=== PATIENT | female | born 1945 | race Caucasian/White ===

== ENCOUNTER 2024-07-15 13:41 | Inpatient (IN) | payer BC, MEDICARE ==
--- NOTE | 2024-07-15 13:57 | ED ---
Fall HPI - General Chief Complaint: Fall Stated Complaint: fall Time Seen by Provider: 07/15/24 13:50 Source: patient, EMS, RN notes reviewed Mode of arrival: EMS Limitations: no limitations - History of Present Illness Initial Comments: This is a 78-year-old female who presents to the emergency department for a fall. Patient states that she was getting dressed today around 11 AM and in the process she fell and landed on her back. However, she is largely having pain to her right hip and is unable to move her leg or ambulate as a result of the pain. Denies hitting her head or any loss of consciousness. Not taking any blood thinners. Denies sustaining any other injuries. MD Complaint: fall - Related Data Allergies Allergy/AdvReac Type Severity Reaction Status Date / Time No Known Allergies Allergy Verified 07/15/24 13:47 Review of Systems ROS Statement: Those systems with pertinent positive or pertinent negative responses have been documented in the HPI. ROS Other: All systems not noted in ROS Statement are negative. Past Medical History Past Medical History: Hypertension Past Surgical History: Hysterectomy Smoking Status: Never smoker Past Alcohol Use History: None Reported Past Drug Use History: None Reported General Exam Limitations: no limitations General appearance: alert, in no apparent distress Head exam: Present: atraumatic, normocephalic, normal inspection Respiratory exam: Present: normal lung sounds bilaterally. Absent: respiratory distress, wheezes, rales, rhonchi, stridor Cardiovascular Exam: Present: regular rate, normal rhythm, normal heart sounds. Absent: systolic murmur, diastolic murmur, rubs, gallop, clicks Extremities exam: Present: other (Tenderness to palpation over the right hip. Very limited range of motion secondary to pain. No shortening or rotation of the right lower extremity. 2+ DP and PT pulses) Neurological exam: Present: alert, oriented X3, CN II-XII intact Psychiatric exam: Present: normal affect, normal mood Skin exam: Present: warm, dry, intact, normal color. Absent: rash Course Vital Signs 07/15/24 13:43 Temperature 97.7 F Pulse Rate 65 Respiratory 20 Rate Blood Pressure 161/83 O2 Sat by Pulse 98 Oximetry Medical Decision Making - Medical Decision Making This is a 78-year-old female who presents to the emergency department for right hip pain after a fall. Was pt. sent in by a medical professional or institution? @ -No Did you speak to anyone other than the patient for history? @ -No Did you review nursing and triage notes? @ -Yes, and I agree, it is accurate with regards to the patient's symptoms. Were old charts reviewed? @ -No Differential Diagnosis? @ -Differential Musculoskeletal Muscular strain, contusion, ligament sprain, fracture, arthritis, septic arthritis, bursitis, cellulitis, muscle spasm, nerve compression, DVT, arterial occlusion, herpes zoster, electrolyte abnormality, tumor.... This is not meant to be in all inclusive list EKG interpreted by me (3pts min.)? @ -Not obtained X-rays interpreted by me (1pt min.)? @ -X-ray of the right hip and AP pelvis obtained. My interpretation identifies no acute fractures. CT interpreted by me (1pt min.)? @ -CT scan of the pelvis and right femur obtained. My interpretation identifies no evidence of a femoral neck fracture. U/S interpreted by me (1pt. min.)? @ -Not obtained What testing was considered but not performed? (CT, X-rays, U/S, labs)? Why? @ -None What meds were considered but not given? Why? @ -None Did you discuss the management of the patient with other professionals? @ -Yes, Dr. Duran, who accepts the patient for admission. Did you reconcile home meds? @ -No Was smoking cessation discussed for >3mins.? @ -No Was critical care preformed (if so, how long)? @ -No Were there social determinants of health that impacted care today? How? (Homelessness, low income, unemployed, alcoholism, drug addiction, transportation, low edu. Level, literacy, decrease access to med. care, fci, rehab)? @ -No Was there de-escalation of care discussed even if they declined? (Discuss DNR or withdrawal of care, Hospice)? @ -No What co-morbidities impacted this encounter? (DM, HTN, Smoking, COPD, CAD, Cancer, CVA, Hep., AIDS, mental health diagnosis, sleep apnea, morbid obesity)? @ -None Was patient admitted / discharged? @ -Admitted. We started with an x-ray of the right hip and AP pelvis. No fractures were identified. However, given her pain we obtained a CT scan of the pelvis and right femur for better evaluation. She was found to have fractures of the superior and inferior pubic rami on the right. Discussed that these are not typically surgical fractures and management is conservative. She was given pain medication and we tried to get the patient up to ambulate. However, she was able to stand but could not take any steps with her walker. She does also live alone and is a big fall risk. Patient subsequently admitted to medicine for pain management with PT/OT and possible rehab placement depending on clinical course. Consult placed for orthopedics. Case discussed with ED attending Dr. Yan. Undiagnosed new problem with uncertain prognosis? @ -None Drug Therapy requiring intensive monitoring for toxicity (Heparin, Nitro, Insulin, Cardizem)? @ -None Were any procedures done? @ -None Diagnosis/symptom? @ -Fall, inferior and superior pubic rami fractures Acute, or Chronic, or Acute on Chronic? @ -Acute Uncomplicated (without systemic symptoms) or Complicated (systemic symptoms)? @ -Uncomplicated Side effects of treatment? @ -None Exacerbation, Progression, or Severe Exacerbation] @ -Not applicable Poses a threat to life or bodily function? @ -Yes, patient unable to ambulate - Radiology Data Radiology results: report reviewed, image reviewed Disposition Clinical Impression: Fall, Inferior pubic ramus fracture, Fracture of superior pubic ramus Disposition: ADMITTED IP TO THIS HOSP
--- NOTE | 2024-07-15 14:13 | XR ---
EXAMINATION TYPE: XR Hip RT and AP Pelvis DATE OF EXAM: 07/15/2024 CLINICAL INDICATION: Female, 78 years old with history of Fall, hip pain, hip pain. TECHNIQUE: A single AP view of the pelvis is obtained. Two views of the right hip are obtained. COMPARISON: None. FINDINGS: Osseous structures are demineralized. There is no acute fracture/dislocation evident in t he pelvis or right hip. There is narrowing of the bilateral sacroiliac joints more prominent on the l eft. Pubic symphysis is intact. Mild to moderate narrowing and spurring in both hip joints. Overlying soft tissue is unremarkable. IMPRESSION: There is no acute fracture or dislocation in the pelvis or right hip. [facility], , 07/15/2024 2:10 PM
[2024-07-15] MEDS: KETOROLAC 15 MG/ML 1 ML VIAL IVP STA (15:06)
[2024-07-15] MEDS: MORPHINE SULFATE 4 MG/ML SYRINGE IVP STA (15:06)
[2024-07-15] MEDS: KETOROLAC 15 MG/ML 1 ML VIAL IM STA (15:10)
[2024-07-15] MEDS: MORPHINE SULFATE 4 MG/ML SYRINGE IM STA (15:10)
--- NOTE | 2024-07-15 15:34 | CT ---
EXAMINATION TYPE: CT pelvis wo con DATE OF EXAM: 07/15/2024 COMPARISON: None CLINICAL INDICATION: Female, 78 years old with history of Fall, right hip pain; PHH, Right leg pain p ost fall CT DLP: mGycm Automated exposure control for dose reduction was used. FINDINGS: There is a nondisplaced fracture of the proximal right superior pubic ramus and minimally displaced f racture of the right inferior pubic ramus. There is no diastasis of the pubic symphysis or SI joints. There is marked osteoarthritic changes of facets at the L5-S1 level. IMPRESSION: Fractures of the superior and inferior pubic rami on the right as described above. [facility], , 07/15/2024 3:31 PM
--- NOTE | 2024-07-15 16:09 | CT ---
EXAMINATION TYPE: CT femur RT wo con DATE OF EXAM: 07/15/2024 COMPARISON: None CLINICAL INDICATION: Female, 78 years old with history of Fall, right hip pain; PHH, Right leg pain p ost fall CT DLP: mGycm Automated exposure control for dose reduction was used. FINDINGS: There is no fracture or dislocation of the right hip or femur. There is minimal osteoarthritic change s right hip as evidenced by mild hypertrophic spurring of the acetabulum and minimal joint space narr owing. There is a total right knee prosthesis which appears to be in satisfactory position. The soft tissues are unremarkable. IMPRESSION: No evidence of acute trauma to the right hip or femur. [facility], , 07/15/2024 4:07 PM
[2024-07-15] MEDS ORDERED: NALOXONE 0.4 MG/ML 1 ML VIAL IV PRN (16:41)
[2024-07-15] MEDS ORDERED: ACETAMINOPHEN TAB 325 MG TAB PO PRN (16:41)
[2024-07-15 17:55] LABS: Basophils # (A) 0.1 k/uL (0-0.2); Basophils % (A) 1 %; Eosinophils # (A) 0.1 k/uL (0-0.7); Eosinophils % (A) 1 %; HCT 42.3 % (34.0-46.0); HGB 13.8 gm/dL (11.4-16.0); Lymphocytes # (A) 1.7 k/uL (1.0-4.8); Lymphocytes % (A) 11 %; MCH 28.7 pg (25.0-35.0); MCHC 32.6 g/dL (31.0-37.0); MCV 87.9 fL (80.0-100.0); Mean Platelet Volume 8.3; Monocytes # (A) 0.8 k/uL (0-1.0); Monocytes % (A) 5 %; Neutrophils # (A) 12.8 k/uL (1.3-7.7); Neutrophils % (A) 82 %; Platelet Count 319 k/uL (150-450); RBC 4.82 m/uL (3.80-5.40); WBC 15.6 k/uL (3.8-10.6)
[2024-07-15 18:05] LABS: ALT 28 U/L (4-34); AST 47 U/L (14-36); African American GFR (CKD) 74 (>60 ml/min/1.73 sqM); Albumin 4.8 g/dL (3.5-5.0); Alkaline Phosphatase 68 U/L (38-126); Anion Gap 13 mmol/L; Blood Urea Nitrogen 15 mg/dL (7-17); Calcium 9.8 mg/dL (8.4-10.2); Carbon Dioxide 21 mmol/L (22-30); Chloride 100 mmol/L (98-107); Glucose 100 mg/dL (74-99); Non-African American GFR(CKD) 64 (>60 ml/min/1.73 sqM); Potassium 4.8 mmol/L (3.5-5.1); Sodium 134 mmol/L (137-145); Total Bilirubin 1.2 mg/dL (0.2-1.3)
[2024-07-15] MEDS: PANTOPRAZOLE 40 MG TABLET PO SCH (20:16)
[2024-07-15] MEDS: PROPRANOLOL LA 60 MG CAP.SA.24H PO SCH (20:16)
[2024-07-15] MEDS: ANASTROZOLE 1 MG TAB PO SCH (20:16)
[2024-07-15] MEDS: LEVOTHYROXINE 125 MCG TAB PO SCH (20:16)
[2024-07-15] MEDS: ATORVASTATIN 10 MG TAB PO SCH (20:16)
[2024-07-16] MEDS: PANTOPRAZOLE 40 MG/10 ML VIAL IV SCH (08:27)
--- NOTE | 2024-07-16 08:31 | P.HPIM ---
History of Present Illness H&P Date: 07/16/24 This is a 78-year-old female who presented to the emergency department for complaints of a fall. Patient reports she had been getting dressed when she fell and landed on her back. Patient was having a lot of pain to her right hip and was unable to ambulate as a result of the pain. Patient denies any loss of consciousness or hitting her head during the fall. Patient does live alone at home, however family is close by. CT of the pelvis shows fracture of the superior and inferior pubic rami on the right. Patient attempted to ambulate in the emergency room however was unable to stand. Orthopedics have been consulted. Patient reports pain is well-controlled. Further medical history as noted below. Review of Systems Constitutional: Denies chills, Denies fever Cardiovascular: Denies chest pain, Denies dyspnea on exertion Respiratory: Denies cough, Denies dyspnea Gastrointestinal: Denies nausea, Denies vomiting Musculoskeletal: Reports limitation of motion, Denies leg numbness/tingling Musculoskeletal: right: hip pain Neurological: Denies headaches, Denies weakness Past Medical History Past Medical History: Cancer, Hypertension Additional Past Medical History / Comment(s): Breast CA History of Any Multi-Drug Resistant Organisms: None Reported Past Surgical History: Hysterectomy Additional Past Surgical History / Comment(s): Left mastectomy with lymph node removal, Right total knee Past Psychological History: Anxiety Smoking Status: Never smoker Past Alcohol Use History: None Reported Past Drug Use History: None Reported - Past Family History Father Family Medical History: Diabetes Mellitus Mother Family Medical History: No Reported History Medications and Allergies Home Medications Medication Instructions Recorded Confirmed Type Anastrozole [Arimidex] 1 mg PO HS 07/15/24 07/15/24 History Levothyroxine Sodium [Synthroid] 125 mcg PO HS 07/15/24 07/15/24 History Omeprazole 20 mg PO HS 07/15/24 07/15/24 History Propranolol LA [Inderal LA] 60 mg PO HS 07/15/24 07/15/24 History Simvastatin [Zocor] 20 mg PO HS 07/15/24 07/15/24 History Allergies Allergy/AdvReac Type Severity Reaction Status Date / Time No Known Allergies Allergy Verified 07/15/24 18:02 Physical Exam Vitals: Vital Signs Temp Pulse Pulse Resp BP BP Pulse Ox 07/16/24 07:37 14 03/27/25 07:17 98.0 F 65 18 117/77 97 07/16/24 02:00 98.5 F 66 12 116/71 96 07/15/24 19:58 98.8 F 70 14 131/84 90 L 07/15/24 19:20 70 14 07/15/24 18:23 98.7 F 67 18 160/78 99 07/15/24 18:01 97.8 F 70 18 126/72 98 07/15/24 13:43 97.7 F 65 20 161/83 98 Intake and Output 07/15/24 07/16/24 07/16/24 22:59 06:59 14:59 Intake Total 240 Balance 240 Intake: Oral 240 Other: Voiding Method Bedpan Bedpan # Voids 2 Weight 67.132 kg - Constitutional General appearance: cooperative, no acute distress - EENT Eyes: PERRLA - Neck Neck: no lymphadenopathy, normal ROM, no rigidity - Respiratory Respiratory: bilateral: CTA - Cardiovascular Rhythm: regular Heart sounds: normal: S1, S2 - Gastrointestinal General gastrointestinal: soft, no tenderness - Integumentary Integumentary: normal, normal turgor - Musculoskeletal Musculoskeletal: generalized weakness, strength equal bilaterally - Psychiatric Psychiatric: A&O x's 3 Results CBC & Chem 7: 07/15/24 17:34 07/15/24 17:34 Labs: Abnormal Lab Results - Last 24 Hours (Table) 07/15/24 07/15/24 Range/Units 17:34 17:34 WBC 15.6 H (3.8-10.6) k/uL Neutrophils # 12.8 H (1.3-7.7) k/uL Sodium 134 L (137-145) mmol/L Carbon Dioxide 21 L (22-30) mmol/L Glucose 100 H (74-99) mg/dL AST 47 H (14-36) U/L Thrombosis Risk Factor Assmnt - Choose All That Apply Any of the Below Risk Factors Present?: Yes Other Risk Factors: Yes Each Risk Factor Represents 3 Points: Age 75 years or older Other congenital or acquired thrombophilia - If yes, enter type in comment: Yes Each Risk Factor Represents 5 Points: Hip, pelvis, or leg fracture (< 1 month) Thrombosis Risk Factor Assessment Total Risk Factor Score: 8 Thrombosis Risk Factor Assessment Level: High Risk Assessment and Plan (1) Hypertension Current Visit: Yes Status: Acute Code(s): I10 - ESSENTIAL (PRIMARY) HYPERTENSION SNOMED Code(s): 42872861 (2) Fall Current Visit: Yes Status: Acute Code(s): W19.XXXA - UNSPECIFIED FALL, INITIAL ENCOUNTER SNOMED Code(s): 1260904 (3) Fracture of superior pubic ramus Current Visit: Yes Status: Acute Code(s): S32.519A - FRACTURE OF SUPERIOR RIM OF UNSP PUBIS, INIT FOR CLOS FX SNOMED Code(s): 828543874 (4) Inferior pubic ramus fracture Current Visit: Yes Status: Acute Code(s): S32.599A - OTH FRACTURE OF UNSP PUBIS, INIT ENCNTR FOR CLOSED FRACTURE SNOMED Code(s): 786569085 (5) Hypothyroid Current Visit: Yes Status: Acute Code(s): E03.9 - HYPOTHYROIDISM, UNSPECIFIED SNOMED Code(s): 03620583 Plan: Continue home medications. Recheck CBC and CMP in the morning. Consult to orthopedics, appreciate their recommendations. Consult to PT and OT for evaluation when cleared by Ortho. Patient may need placement due to living alone. Patient seen and evaluated by nurse practitioner, physician in agreement with plan.
--- NOTE | 2024-07-16 10:21 | P.CNOR ---
History of Present Illness - [facility] Consult date: 07/16/24 Consult reason: fracture (Right pubic rami) History of present illness: This is a 78-year-old female who is admitted to [facility] on 07/15/2024 after falling in her home and sustaining injury to her right hip. She states that she was trying to put her socks on and lost her balance. She complains of right hip pain. She denies head or neck injury. She denies injury to her upper extremities. Past Medical History Past Medical History: Cancer, Hypertension Additional Past Medical History / Comment(s): Breast CA History of Any Multi-Drug Resistant Organisms: None Reported Past Surgical History: Hysterectomy Additional Past Surgical History / Comment(s): Left mastectomy with lymph node removal, Right total knee Past Psychological History: Anxiety Smoking Status: Never smoker Past Alcohol Use History: None Reported Past Drug Use History: None Reported - Past Family History Father Family Medical History: Diabetes Mellitus Mother Family Medical History: No Reported History Medications and Allergies Home Medications Medication Instructions Recorded Confirmed Type Anastrozole [Arimidex] 1 mg PO HS 07/15/24 07/15/24 History Levothyroxine Sodium [Synthroid] 125 mcg PO HS 07/15/24 07/15/24 History Omeprazole 20 mg PO HS 07/15/24 07/15/24 History Propranolol LA [Inderal LA] 60 mg PO HS 07/15/24 07/15/24 History Simvastatin [Zocor] 20 mg PO HS 07/15/24 07/15/24 History Allergies Allergy/AdvReac Type Severity Reaction Status Date / Time No Known Allergies Allergy Verified 07/15/24 18:02 Physical Examination This is a pleasant 78-year-old female in no acute distress. She is alert and oriented x 3. Exam of the head neck revealed no obvious deformity. She has fairly good cervical spine motion without difficulty or pain. Nontender with palpation over the cervical spinous processes and paraspinal musculature. Exam of the upper extremities reveals good range of motion of the shoulders, elbows, wrist and fingers. Neurovascular status to the upper extremities is intact. Exam of the lower extremities reveals no obvious deformity. Total knee scar noted on the right knee. She is unable to lift her right leg off the bed indepe ndently. She is able to lift her left leg off the bed independently. She has full foot and ankle motion bilaterally. Logroll to the right hip produces pain. Neurovascular status to the lower extremities is intact. Results X-ray and CT of the pelvis and right hip reveals nondisplaced superior and inferior pubic rami fractures on the right. The superior rami fracture extends adjacent to the acetabulum. She has mild to moderate hip arthritis on the right. No other fractures noted. - Labs Labs: Abnormal Lab Results - Last 24 Hours (Table) 07/15/24 07/15/24 Range/Units 17:34 17:34 WBC 15.6 H (3.8-10.6) k/uL Neutrophils # 12.8 H (1.3-7.7) k/uL Sodium 134 L (137-145) mmol/L Carbon Dioxide 21 L (22-30) mmol/L Glucose 100 H (74-99) mg/dL AST 47 H (14-36) U/L H & H 07/15/24 Range/Units 17:34 Hgb 13.8 (11.4-16.0) gm/dL Hct 42.3 (34.0-46.0) % Result Diagrams: 07/15/24 17:34 07/15/24 17:34 Assessment and Plan (1) Fall Current Visit: Yes Status: Acute Code(s): W19.XXXA - UNSPECIFIED FALL, IN ITIAL ENCOUNTER SNOMED Code(s): 5907924 (2) Fracture of superior pubic ramus Current Visit: Yes Status: Acute Code(s): S32.519A - FRACTURE OF SUPERIOR RIM OF UNSP PUBIS, INIT FOR CLOS FX SNOMED Code(s): 991837160 (3) Inferior pubic ramus fracture Current Visit: Yes Status: Acute Code(s): S32.599A - OTH FRACTURE OF UNSP PUBIS, INIT ENCNTR FOR CLOSED FRACTURE SNOMED Code(s): 472844826 Plan: The clinical and radiographic findings are discussed with the patient. She will be toe-touch weightbearing to the right lower extremity with walker. I have consulted physical therapy and Occupational Therapy. She may possibly require inpatient rehab at discharge. However, the patient would like to be able to go home. She states she does have help at home and that her daughter lives close by. She is to follow-up in our office in 2 weeks for esha-ray and evaluation.
[2024-07-16] MEDS: KETOROLAC 15 MG/ML 1 ML VIAL IVP PRN (11:15)
[2024-07-16] MEDS: MORPHINE SULFATE 4 MG/ML SYRINGE IV PRN (11:50)
[2024-07-16] MEDS: ONDANSETRON 4 MG/2 ML VIAL IVP PRN (11:53)
[2024-07-16] MEDS: HYDROcodone/APAP 5-325MG 1 EACH TAB PO PRN (15:49)
[2024-07-17 08:09] VITALS: BP 112/75; PULSE 62; RESP 19; TEMP 98.3
[2024-07-17 08:18] LABS: HCT 42.9 % (37.2-46.3); HGB 13.3 g/dL (12.0-15.0); MCH 28.6 pg (27.0-32.0); MCV 92.3 FL (80.0-97.0); Mean Platelet Volume 11.1 FL (9.5-12.2); NRBC Per 100 WBC 0 X 10*3/uL (0.00-0.01); Platelet Count 293 X 10*3/uL (140-440); RBC 4.65 X 10*6/uL (4.10-5.20); RDW 15.1 % (11.5-14.5); WBC 10.26 X 10*3/uL (4.50-10.00)
[2024-07-17 08:44] LABS: ALT 26 U/L (8-44); AST 46 U/L (13-35); Albumin 4.6 g/dL (3.8-4.9); Albumin/Globulin Ratio 1.59 Ratio (1.60-3.17); Alkaline Phosphatase 62 U/L (41-126); BUN/Creat Ratio 16.56 Ratio (12.00-20.00); Blood Urea Nitrogen 29.8 mg/dL (9.0-27.0); Calcium 9.6 mg/dL (8.7-10.3); Chloride 102 mmol/L (96-109); Globulin 2.9 g/dL (1.6-3.3); Glucose 112 mg/dL (70-110); Potassium 4.5 mmol/L (3.5-5.5); Sodium 138 mmol/L (135-145); Total Bilirubin 0.5 mg/dL (0.3-1.2); Total Protein 7.5 g/dL (6.2-8.2)
--- NOTE | 2024-07-17 10:24 | P.DS ---
Providers Date of admission: 07/15/24 16:58 Expected date of discharge: 07/17/24 Attending physician: Jose Duran Consults: 07/15/24 16:41 Consult Physician Urgent Consulting Provider: Omega Munoz Consult Reason/Comments: Superior and inferior pubic rami fractures Do you want consulting provider notified?: Yes Primary care physician: Jose Duran Hospital Course: the patient is a 78-year-old white female who fell resulting in inferior to her pubic rami fractures. She is going to try to go home with her daughter and lived there for her rehabilitation. She has good support there and we will set up home PTOT at that point. If she does not do well we will consider inpatient rehab. Plan - Discharge Summary New Discharge Prescriptions: New HYDROcodone/APAP 5-325MG [Paxton 5-325] 1 each PO Q4HR PRN #180 tab PRN Reason: Moderate Pain (Scale 4 To 6) Continue Propranolol LA [Inderal LA] 60 mg PO HS Anastrozole [Arimidex] 1 mg PO HS Simvastatin [Zocor] 20 mg PO HS Omeprazole 20 mg PO HS Levothyroxine Sodium [Synthroid] 125 mcg PO HS Discharge Medication List Anastrozole [Arimidex] 1 mg PO HS 07/15/24 [History] Levothyroxine Sodium [Synthroid] 125 mcg PO HS 07/15/24 [History] Omeprazole 20 mg PO HS 07/15/24 [History] Propranolol LA [Inderal LA] 60 mg PO HS 07/15/24 [History] Simvastatin [Zocor] 20 mg PO HS 07/15/24 [History] HYDROcodone/APAP 5-325MG [Paxton 5-325] 1 each PO Q4HR PRN #180 tab 07/17/24 [Rx] Follow up Appointment(s)/Referral(s): Residential Home,Health [NON-STAFF] - 1 Week Omega Munoz MD [STAFF PHYSICIAN] - 2 Weeks None,Stated [REFERRING] - 1 Week Jose Duran MD [Primary Care Provider] - 1 Week Activity/Diet/Wound Care/Special Instructions: Patient will stay with her daughter Lori at [address] [place] [address] Dr. Conrado Moreno [id number] Discharge Disposition: HOME WITH HOME HEALTH SERVICES
== END 2024-07-17 12:45 | disposition home health service (06) | DRG 536 ==
LOC: EC 13:41 → 5NMEDONC 16:58
PROVIDERS: ADMIT Family Medicine; ATTEND Family Medicine
DX: S32.591A Other specified fracture of right pubis, initial encounter for closed fracture (principal); E03.9 Hypothyroidism, unspecified; I10 Essential (primary) hypertension; Z79.890 Hormone replacement therapy; W19.XXXA Unspecified fall, initial encounter; F41.9 Anxiety disorder, unspecified; Z85.3 Personal history of malignant neoplasm of breast; Z90.12 Acquired absence of left breast and nipple; Z90.710 Acquired absence of both cervix and uterus; Y92.099 Unspecified place in other non-institutional residence as the place of occurrence of the external cause
CPT/HCPCS: 72192; 73502; 80053; 85025; 85027; 96372; 96374; 96375; 96376; 99285

== ENCOUNTER 2024-11-11 20:29 | Observation (INO) | payer MEDICARE ==
--- NOTE | 2024-11-11 20:47 | ED ---
Altered Mental Status HPI - General Chief Complaint: Altered Mental Status Stated Complaint: Confused Time Seen by Provider: 11/11/24 20:39 Source: patient, RN notes reviewed, old records reviewed, Caregiver Mode of arrival: ambulatory Limitations: no limitations - History of Present Illness Initial Comments: This is a 78-year-old female presenting by family, family states patient was having slurred speech inappropriate activity and confusion at home today. This did appear to be sudden onset that she was acting appropriately yesterday. Patient is brought in by family without complaints she currently has no complaints and is not happy to be in the hospital but family concern for stroke MD Complaint: altered mental status, confusion -: unknown Severity: moderate Consistency of Symptoms: waxing and waning Associated Symptoms: denies other symptoms - Related Data Home Medications Medication Instructions Recorded Confirmed Anastrozole [Arimidex] 1 mg PO HS 07/15/24 11/12/24 Omeprazole 20 mg PO HS 07/15/24 11/12/24 Propranolol LA [Inderal LA] 60 mg PO HS 07/15/24 11/12/24 Simvastatin [Zocor] 20 mg PO HS 07/15/24 11/12/24 HYDROcodone/APAP 7.5-325MG [[place] 1 tab PO Q4H PRN 11/12/24 11/12/24 7.5-325] LORazepam [Ativan] 1 mg PO TID PRN 11/12/24 11/12/24 Previous Rx's Medication Instructions Recorded Folic Acid 1 mg PO DAILY #30 tab 11/13/24 Levothyroxine Sodium [Synthroid] 150 mcg PO HS #30 tab 11/13/24 Allergies Allergy/AdvReac Type Severity Reaction Status Date / Time morphine Allergy Unknown Verified 11/12/24 10:24 Penicillins Allergy Unknown Verified 11/12/24 10:24 Childhood sulfamethoxazole Allergy Unknown Verified 11/12/24 10:24 [From Bactrim] trimethoprim [From Bactrim] Allergy Unknown Verified 11/12/24 10:24 Review of Systems ROS Statement: Those systems with pertinent positive or pertinent negative responses have been documented in the HPI. ROS Other: All systems not noted in ROS Statement are negative. Past Medical History Past Medical History: Cancer, Hypertension Additional Past Medical History / Comment(s): Breast CA History of Any Multi-Drug Resistant Organisms: None Reported Past Surgical History: Hysterectomy Additional Past Surgical History / Comment(s): Left mastectomy with lymph node removal, Right total knee Past Psychological History: Anxiety Smoking Status: Never smoker Past Alcohol Use History: None Reported Past Drug Use History: None Reported - Past Family History Father Family Medical History: Diabetes Mellitus Mother Family Medical History: No Reported History General Exam - General Exam Comments Initial Comments: NIH of 0 with no focal neurological deficit noted here Limitations: altered mental status General appearance: alert, in no apparent distress Head exam: Present: atraumatic, normocephalic, normal inspection Eye exam: Present: normal appearance, PERRL, EOMI. Absent: scleral icterus, conjunctival injection, periorbital swelling ENT exam: Present: normal exam, mucous membranes moist Neck exam: Present: normal inspection. Absent: tenderness, meningismus, lymphadenopathy Respiratory exam: Present: normal lung sounds bilaterally. Absent: respiratory distress, wheezes, rales, rhonchi, stridor Cardiovascular Exam: Present: regular rate, normal rhythm, normal heart sounds. Absent: systolic murmur, diastolic murmur, rubs, gallop, clicks GI/Abdominal exam: Present: soft, normal bowel sounds. Absent: distended, te nderness, guarding, rebound, rigid Extremities exam: Present: normal inspection, full ROM, normal capillary refill. Absent: tenderness, pedal edema, joint swelling, calf tenderness Back exam: Present: normal inspection Neurological exam: Present: alert, oriented X3, CN II-XII intact Psychiatric exam: Present: normal affect, normal mood Skin exam: Present: warm, dry, intact, normal color. Absent: rash Course Vital Signs 11/11/24 11/11/24 11/12/24 20:31 21:11 00:01 Temperature 97.9 F 98.6 F Pulse Rate 71 68 65 Respiratory 18 18 17 Rate Blood Pressure 173/84 141/86 148/76 O2 Sat by Pulse 100 99 99 Oximetry - Reevaluation(s) Reevaluation #1: 11/11/24 22:22 Medical records reviewed Reevaluation #2: 11/11/24 22:22 Patient symptoms do appear to wax and wane here in the ER Reevaluation #3: 11/11/24 22:22 Patient informed of results questions answered Reevaluation #4: Was pt. sent in by a medical professional or institution (Dr., PA, STAFF SCIENTIST, urgent care, hospital, or prison...) When possible be specific @ -no Did you speak to anyone other than the patient for history (EMS, parent, family, police, friend...)? What history was obtained from this source @ -no Did you review nursing and triage notes (agree or disagree)? Why? @ -agree Are old charts reviewed (outside hosp., previous admission, EMS record, old EKG, old radiological studies, urgent care reports/EKG's, prison records)? Report findings @ -yes Differential Diagnosis (chest pain, altered mental status, abdominal pain women, abdominal pain men, vaginal bleeding, weakness, fever, dyspnea, syncope, headache, dizziness, GI bleed, back pain, seizure, CVA, palpatations, mental health, musculoskeletal)? @ -prior EKG interpreted by me (3pts min.). @ -yes X-rays interpreted by me (1pt min.). @ -no CT interpreted by me (1pt min.). @ -yes negative for acute disease U/S interpreted by me (1pt. min.). @ -no What testing was considered but not performed or refused? (CT, X-rays, U/S, labs)? Why? @ -none What meds were considered but not given or refused? Why? @ -none Did you discuss the management of the patient with other professionals (professionals i.e. , PA, STAFF SCIENTIST, lab, RT, psych nurse, social organization professor, nurse clinical, teacher, police officer, caseworker protective services)? Give summary @ -no Was smoking cessation discussed for >3mins.? @ -no Was critical care preformed (if so, how long)? @ -no Were there social determinants of health that impacted care today? How? (Homelessness, low income, unemployed, alcoholism, drug addiction, transportation, low edu. Level, literacy, decrease access to med. care, [facility], rehab)? @ -none Was there de-escalation of care discussed even if they declined (Discuss DNR or withdrawal of care, Hospice)? DNR status @ -no What co-morbidities impacted this encounter? (DM, HTN, Smoking, COPD, CAD, Cancer, CVA, ARF, Chemo, Hep., AIDS, mental health diagnosis, sleep apnea, morbid obesity)? @ -none Was patient admitted / discharged? Hospital course, mention meds given and route, prescriptions, significant lab abnormalities, going to OR and other pertinent info. @ - 78 female to the ER for evaluation of altered mental status, CT scanning is normal lab testing is negative here in the ER patient will admit for continued altered mental status Admitted Undiagnosed new problem with uncertain prognosis? @ -no Drug Therapy requiring intensive monitoring for toxicity (Heparin, Nitro, Insulin, Cardizem)? @ -no Were any procedures done? @ -no Diagnosis/symptom? @ -Altered mental status Acute, or Chronic, or Acute on Chronic? @ -Acute Uncomplicated (without systemic symptoms) or Complicated (systemic symptoms)? @ -Complicated Side effects of treatment? @ -no Exacerbation, Progression, or Severe Exacerbation? @ -exacerbation Poses a threat to life or bodily function? How? (Chest pain, USA, DC, pneumonia, PE, COPD, DKA, ARF, appy, cholecystitis, CVA, Diverticulitis, Homicidal, Suicidal, threat to staff... and all critical care pts) @ -yes extremes of age Reevaluation #5: Differential Altered Mental Status: Hypoglycemia, DKA, hypercapnia, ETOH, overdose, CO poisoning, trauma, myxedema coma, HTN encephalopathy, infection, encephalitis, psychosis, intercranial hemorrhage, hepatic encephalopathy, meningitis, CVA, this is not meant to be an all-inclusive list Differential CVA Ischemic stroke, hemorrhagic stroke, brain tumor, atypical migraine, Wernicke's encephalopathy, seizure, multiple sclerosis, meningitis, encephalitis, hypoglycemia, Guillain-Seo, electrolytes disturbance, myasthenia gravis.... This is not meant to be an all-inclusive list - Consultations Consultation #1: Spoke with Dr. Duran who agrees to admit this patient Medical Decision Making - Medical Decision Making 78 female to the ER for evaluation of altered mental status, CT scanning is normal lab testing is negative here in the ER patient will admit for continued altered mental status - Lab Data Result diagrams: 11/13/24 02:28 11/13/24 02:28 Lab Results 11/11/24 11/11/24 11/11/24 Range/Units 20:50 20:50 20:50 WBC 10.56 H (4.50-10.00) 10*3/uL RBC 4.82 (4.10-5.20) 10*6/uL Hgb 14.6 (12.0-15.0) g/dL Hct 44.3 (37.2-46.3) % MCV 91.9 (80.0-97.0) fL MCH 30.3 (27.0-32.0) pg MCHC 33.0 (32.0-37.0) g/dL Plt Count 309 (140-440) 10*3/uL MPV 10.8 (9.5-12.2) fL Immature Gran % (Auto) 0.5 % Neutrophils % 51.8 % Lymphocytes % 34.3 % Monocytes % 10.5 % Eosinophils % 2.0 % Basophils % 0.9 % Immature Gran # 0.05 H (0.00-0.04) 10*3/uL Neutrophils # 5.47 (1.80-7.70) 10*3/uL Lymphocytes # 3.62 (0.90-5.00) 10*3/uL Monocytes # 1.11 H (0.20-1.00) 10*3/uL Eosinophils # 0.21 (0.04-0.35) 10*3/uL Basophils # 0.10 (0.00-0.10) 10*3/uL PT 11.5 (10.0-12.5) sec INR 1.1 (<1.2) APTT 25.1 (22.0-30.0) sec POC Glucose (mg/dL) (70-110) mg/dL POC Glu [employer] Law Clerk ID Ammonia 26 (<30) umol/L Troponin I (0.000-0.034) ng/mL Urine Color Urine Appearance (Clear) Urine pH (5.0-8.0) Ur Specific [place] (1.001-1.035) Urine Protein (Negative) Urine Glucose (UA) (Negative) Urine Ketones (Negative) Urine Blood (Negative) Urine Nitrite (Negative) Urine Bilirubin (Negative) Urine Urobilinogen (<2.0) mg/dL Ur Leukocyte Esterase (Negative) Urine RBC (0-5) /hpf Urine WBC (0-5) /hpf Ur Squamous Epith Cells (0-4) /hpf Calcium Oxalate Crystal (None) /hpf Urine Bacteria (None) /hpf Urine Mucus (None) /hpf Urine Yeast (Budding) (None) /hpf Urine Opiates Screen (NotDetected) Ur Oxycodone Screen (NotDetected) Urine Methadone Screen (NotDetected) Ur Barbiturates Screen (NotDetected) U Tricyclic Antidepress (NotDetected) Ur Phencyclidine Scrn (NotDetected) Ur Amphetamines Screen (NotDetected) U Methamphetamines Scrn (NotDetected) U Benzodiazepines Scrn (NotDetected) Urine Cocaine Screen (NotDetected) U Marijuana (THC) Screen (NotDetected) 11/11/24 11/11/24 11/11/24 Range/Units 20:50 21:03 21:35 WBC (4.50-10.00) 10*3/uL RBC (4.10-5.20) 10*6/uL Hgb (12.0-15.0) g/dL Hct (37.2-46.3) % MCV (80.0-97.0) fL MCH (27.0-32.0) pg MCHC (32.0-37.0) g/dL Plt Count (140-440) 10*3/uL MPV (9.5-12.2) fL Immature Gran % (Auto) % Neutrophils % % Lymphocytes % % Monocytes % % Eosinophils % % Basophils % % Immature Gran # (0.00-0.04) 10*3/uL Neutrophils # (1.80-7.70) 10*3/uL Lymphocytes # (0.90-5.00) 10*3/uL Monocytes # (0.20-1.00) 10*3/uL Eosinophils # (0.04-0.35) 10*3/uL Basophils # (0.00-0.10) 10*3/uL PT (10.0-12.5) sec INR (<1.2) APTT (22.0-30.0) sec POC Glucose (mg/dL) 110 (70-110) mg/dL POC Glu [employer] Law Clerk ID Michael Mccarty Ammonia (<30) umol/L Troponin I <0.012 (0.000-0.034) ng/mL Urine Color Urine Appearance (Clear) Urine pH (5.0-8.0) Ur Specific [place] (1.001-1.035) Urine Protein (Negative) Urine Glucose (UA) (Negative) Urine Ketones (Negative) Urine Blood (Negative) Urine Nitrite (Negative) Urine Bilirubin (Negative) Urine Urobilinogen (<2.0) mg/dL Ur Leukocyte Esterase (Negative) Urine RBC (0-5) /hpf Urine WBC (0-5) /hpf Ur Squamous Epith Cells (0-4) /hpf Calcium Oxalate Crystal (None) /hpf Urine Bacteria (None) /hpf Urine Mucus (None) /hpf Urine Yeast (Budding) (None) /hpf Urine Opiates Screen Not Detected (NotDetected) Ur Oxycodone Screen Not Detected (NotDetected) Urine Methadone Screen Not Detected (NotDetected) Ur Barbiturates Screen Not Detected (NotDetected) U Tricyclic Antidepress Not Detected (NotDetected) Ur Phencyclidine Scrn Not Detected (NotDetected) Ur Amphetamines Screen Not Detected (NotDetected) U Methamphetamines Scrn Not Detected (NotDetected) U Benzodiazepines Scrn Detected H (NotDetected) Urine Cocaine Screen Not Detected (NotDetected) U Marijuana (THC) Screen Not Detected (NotDetected) 11/11/24 Range/Units 21:35 WBC (4.50-10.00) 10*3/uL RBC (4.10-5.20) 10*6/uL Hgb (12.0-15.0) g/dL Hct (37.2-46.3) % MCV (80.0-97.0) fL MCH (27.0-32.0) pg MCHC (32.0-37.0) g/dL Plt Count (140-440) 10*3/uL MPV (9.5-12.2) fL Immature Gran % (Auto) % Neutrophils % % Lymphocytes % % Monocytes % % Eosinophils % % Basophils % % Immature Gran # (0.00-0.04) 10*3/uL Neutrophils # (1.80-7.70) 10*3/uL Lymphocytes # (0.90-5.00) 10*3/uL Monocytes # (0.20-1.00) 10*3/uL Eosinophils # (0.04-0.35) 10*3/uL Basophils # (0.00-0.10) 10*3/uL PT (10.0-12.5) sec INR (<1.2) APTT (22.0-30.0) sec POC Glucose (mg/dL) (70-110) mg/dL POC Glu [employer] Law Clerk ID Ammonia (<30) umol/L Troponin I (0.000-0.034) ng/mL Urine Color Colorless Urine Appearance Clear (Clear) Urine pH 6.0 (5.0-8.0) Ur Specific [place] 1.006 (1.001-1.035) Urine Protein Negative (Negative) Urine Glucose (UA) Negative (Negative) Urine Ketones Negative (Negative) Urine Blood Small H (Negative) Urine Nitrite Negative (Negative) Urine Bilirubin Negative (Negative) Urine Urobilinogen <2.0 (<2.0) mg/dL Ur Leukocyte Esterase Trace H (Negative) Urine RBC 6 H (0-5) /hpf Urine WBC 2 (0-5) /hpf Ur Squamous Epith Cells 2 (0-4) /hpf Calcium Oxalate Crystal Rare H (None) /hpf Urine Bacteria Rare H (None) /hpf Urine Mucus Rare H (None) /hpf Urine Yeast (Budding) Rare H (None) /hpf Urine Opiates Screen (NotDetected) Ur Oxycodone Screen (NotDetected) Urine Methadone Screen (NotDetected) Ur Barbiturates Screen (NotDetected) U Tricyclic Antidepress (NotDetected) Ur Phencyclidine Scrn (NotDetected) Ur Amphetamines Screen (NotDetected) U Methamphetamines Scrn (NotDetected) U Benzodiazepines Scrn (NotDetected) Urine Cocaine Screen (NotDetected) U Marijuana (THC) Screen (NotDetected) - EKG Data -: EKG Interpreted by Me (EKG is sinus 68 MA 188 QRS 84 QTc 390) - Radiology Data Radiology results: report reviewed (CT brain is negative for acute disease), image reviewed Disposition Clinical Impression: Altered mental status Disposition: ADMITTED IP TO THIS HOSP Condition: Fair Is patient prescribed a controlled substance at d/c from ED?: No Time of Disposition: 22:20
[2024-11-11] MEDS: SODIUM CHLORIDE 0.9% 1,000 ML IV ONE (21:05)
[2024-11-11 21:10] LABS: Glucose,Whole Blood 110 mg/dL (70-110)
--- NOTE | 2024-11-11 21:14 | CT ---
EXAMINATION TYPE: CT brain wo con CT DLP: 1199.4 mGycm, Automated exposure control for dose reduction was used. DATE OF EXAM: 11/11/2024 9:03 PM COMPARISON: None. CLINICAL INDICATION:Female, 78 years old with history of Altered mental status, AMS TECHNIQUE: Brain: Multiple axial CT images of the brain were obtained without IV contrast. . Coronal and sagitta l reformats reviewed. FINDINGS: Brain: Extra-axial spaces: No abnormal extra-axial fluid collections. Ventricular system: Diffuse moderate to severe hydrocephalus. No significant dilatation of the cerebr al aqueduct. Dilated cisterna magna. No distinct obstructing lesion identified. Cerebral parenchyma: Mild cerebral atrophy. No acute intraparenchymal hemorrhage or mass effect. The perez-white junction is well differentiated. Cerebellum: Unremarkable. Mass effect: No evidence of midline shift. Intracranial vasculature: unremarkable Soft tissues: Normal. Calvarium/osseous structures: No depressed skull fracture. Paranasal sinuses and mastoid air cells: Mild scattered paranasal sinus disease. Visualized orbits: Orbital contents are intact. IMPRESSION: Moderate to severe hydrocephalus. No significant dilatation of the cerebral aqueduct which could boo navid stenosis. Further workup is recommended. No acute intracranial hemorrhage. [facility], , 11/11/2024 9:12 PM
[2024-11-11 21:17] LABS: Basophils # (A) 0.10 10*3/uL (0.00-0.10); Basophils % (A) 0.9 %; Eosinophils # (A) 0.21 10*3/uL (0.04-0.35); Eosinophils % (A) 2.0 %; HCT 44.3 % (37.2-46.3); HGB 14.6 g/dL (12.0-15.0); Lymphocytes # (A) 3.62 10*3/uL (0.90-5.00); Lymphocytes % (A) 34.3 %; MCH 30.3 pg (27.0-32.0); MCHC 33.0 g/dL (32.0-37.0); MCV 91.9 fL (80.0-97.0); Monocytes # (A) 1.11 10*3/uL (0.20-1.00); Monocytes % (A) 10.5 %; Neutrophils # (A) 5.47 10*3/uL (1.80-7.70); Neutrophils % (A) 51.8 %; Platelet Count 309 10*3/uL (140-440); RBC 4.82 10*6/uL (4.10-5.20); RDW 14.5 % (11.5-14.5); WBC 10.56 10*3/uL (4.50-10.00)
[2024-11-11 21:43] LABS: INR 1.1 (<1.2); Partial Thromboplastin Time 25.1 sec (22.0-30.0); Prothrombin Time 11.5 sec (10.0-12.5)
[2024-11-11] MEDS ORDERED: ONDANSETRON 4 MG/2 ML VIAL IVP PRN (22:21)
[2024-11-11] MEDS ORDERED: NALOXONE 0.4 MG/ML 1 ML VIAL IV PRN (22:21)
[2024-11-11 22:55] LABS: Bacteria,Urine Rare /hpf; Bilirubin,Urine Negative (Negative); Blood,Urine Small (Negative); Budding Yeast,Urine Rare /hpf; Calcium Oxalate Crystals,Urine Rare /hpf; Color,Urine Colorless; Glucose,Urine (UA) Negative (Negative); Ketones,Urine Negative (Negative); Leukocyte Esterase,Urine Trace (Negative); Mucus,Urine Rare /hpf; Nitrite,Urine Negative (Negative); PH, Urine 6.0 (5.0-8.0); Protein,Urine Negative (Negative); RBC,Urine 6 /hpf (0-5); Specific Gravity,Urine 1.006 (1.001-1.035); Squamous Epithelial Cell,Urine 2 /hpf (0-4); Urobilinogen,Urine <2.0 mg/dL (<2.0); WBC,Urine 2 /hpf (0-5)
[2024-11-11 22:58] LABS: Barbiturate Screen,Urine Not Detected (NotDetected); Benzodiazepines Screen,Urine Detected (NotDetected); Opiate Screen,Urine Not Detected (NotDetected); Oxycodone Screen, Urine Not Detected (NotDetected); Phencyclidine Screen,Urine Not Detected (NotDetected); Tricyclic Antidepressant,Urine Not Detected (NotDetected); Urn Cannabinoid Scrn Not Detected (NotDetected)
[2024-11-11] MEDS: SODIUM CHLORIDE 0.9% 1,000 ML IV SCH (23:23)
[2024-11-11 23:26] LABS: ALT 23 U/L (4-34); AST 32 U/L (14-36); African American GFR (CKD) >90 (>60 ml/min/1.73 sqM); Albumin 4.4 g/dL (3.5-5.0); Alkaline Phosphatase 108 U/L (38-126); Anion Gap 13 mmol/L; Blood Urea Nitrogen 12 mg/dL (7-17); Calcium 9.1 mg/dL (8.4-10.2); Carbon Dioxide 23 mmol/L (22-30); Chloride 106 mmol/L (98-107); Glucose 112 mg/dL (74-99); Non-African American GFR(CKD) 85 (>60 ml/min/1.73 sqM); Potassium 3.9 mmol/L (3.5-5.1); Sodium 142 mmol/L (137-145); Total Protein 7.3 g/dL (6.3-8.2)
[2024-11-12 05:39] LABS: ALT 17 U/L (4-34); AST 25 U/L (14-36); African American GFR (CKD) >90 (>60 ml/min/1.73 sqM); Albumin 2.9 g/dL (3.5-5.0); Alkaline Phosphatase 60 U/L (38-126); Anion Gap 11 mmol/L; Blood Urea Nitrogen 8 mg/dL (7-17); Calcium 7.0 mg/dL (8.4-10.2); Carbon Dioxide 17 mmol/L (22-30); Chloride 114 mmol/L (98-107); Glucose 75 mg/dL (74-99); Magnesium 1.4 mg/dL (1.6-2.3); Non-African American GFR(CKD) >90 (>60 ml/min/1.73 sqM); Potassium 3.1 mmol/L (3.5-5.1); Sodium 142 mmol/L (137-145); Total Protein 5.3 g/dL (6.3-8.2)
[2024-11-12 05:40] LABS: Basophils # (A) 0.06 10*3/uL (0.00-0.10); Basophils % (A) 0.7 %; Eosinophils # (A) 0.15 10*3/uL (0.04-0.35); Eosinophils % (A) 1.7 %; HCT 32.8 % (37.2-46.3); Lymphocytes # (A) 2.29 10*3/uL (0.90-5.00); Lymphocytes % (A) 25.3 %; MCH 30.6 pg (27.0-32.0); MCHC 33.2 g/dL (32.0-37.0); MCV 92.1 fL (80.0-97.0); Monocytes # (A) 0.99 10*3/uL (0.20-1.00); Monocytes % (A) 10.9 %; Neutrophils # (A) 5.51 10*3/uL (1.80-7.70); Neutrophils % (A) 60.8 %; Platelet Count 211 10*3/uL (140-440); RBC 3.56 10*6/uL (4.10-5.20); RDW 14.6 % (11.5-14.5); WBC 9.05 10*3/uL (4.50-10.00)
[2024-11-12 05:41] LABS: HGB 10.9 g/dL (12.0-15.0)
[2024-11-12] MEDS ORDERED: Potassium Replacement Protocol 1 EACH MISC MISCELLANE PRN (06:27)
[2024-11-12] MEDS ORDERED: Magnesium Replacement Protocol 1 EACH MISC MISCELLANE PRN (06:32)
--- NOTE | 2024-11-12 08:40 | P.HPIM ---
History of Present Illness H&P Date: 11/12/24 This 78-year-old female who presented to the emergency department for concerns with family for slurred speech, inappropriate activity and confusion at home today. Family reported that her change in mentation was sudden and had previously been acting normally. There is no family in the room with patient this morning on our exam. This morning patient is alert and oriented x 3 and is back to baseline. Patient states she felt fine yesterday. Neurology is on consult. CT of the brain shows moderate to severe hydrocephalus. Further medical history as noted below. Review of Systems Constitutional: Denies chills, Denies fever, Denies weakness Cardiovascular: Denies chest pain, Denies dyspnea on exertion Respiratory: Denies cough, Denies dyspnea Gastrointestinal: Denies abdominal pain, Denies nausea, Denies vomiting Musculoskeletal: Denies arm numbness/tingling, Denies leg numbness/tingling Neurological: Denies confusion, Denies headaches, Denies weakness Past Medical History Past Medical History: Cancer, Hypertension Additional Past Medical History / Comment(s): Breast CA History of Any Multi-Drug Resistant Organisms: None Reported Past Surgical History: Hysterectomy Additional Past Surgical History / Comment(s): Left mastectomy with lymph node removal, Right total knee Past Psychological History: Anxiety Smoking Status: Never smoker Past Alcohol Use History: None Reported Past Drug Use History: None Reported - Past Family History Father Family Medical History: Diabetes Mellitus Mother Family Medical History: No Reported History Medications and Allergies Home Medications Medication Instructions Recorded Confirmed Type Anastrozole [Arimidex] 1 mg PO HS 07/15/24 07/15/24 History Levothyroxine Sodium [Synthroid] 125 mcg PO HS 07/15/24 07/15/24 History Omeprazole 20 mg PO HS 07/15/24 07/15/24 History Propranolol LA [Inderal LA] 60 mg PO HS 07/15/24 07/15/24 History Simvastatin [Zocor] 20 mg PO HS 07/15/24 07/15/24 History HYDROcodone/APAP 5-325MG [[place] 1 each PO Q4HR PRN #180 tab 07/17/24 Rx 5-325] Allergies Allergy/AdvReac Type Severity Reaction Status Date / Time morphine Allergy Unknown Verified 11/11/24 20:34 Penicillins Allergy Unknown Verified 11/12/24 06:47 Childhood sulfamethoxazole Allergy Unknown Verified 11/12/24 06:46 [From Bactrim] trimethoprim [From Bactrim] Allergy Unknown Verified 11/12/24 06:46 Physical Exam Vitals: Vital Signs Temp Pulse Pulse Resp BP BP Pulse Ox 11/12/24 07:00 98.6 F 67 15 155/85 98 11/12/24 00:58 97.7 F 69 17 177/75 97 11/12/24 00:01 98.6 F 65 17 148/76 99 11/11/24 21:11 68 18 141/86 99 11/11/24 20:31 97.9 F 71 18 173/84 100 Intake and Output 11/11/24 11/12/24 11/12/24 22:59 06:59 14:59 Other: # Voids 1 Weight 62.596 kg 62.596 kg - Constitutional General appearance: cooperative, no acute distress - EENT Eyes: PERRLA - Neck Neck: no lymphadenopathy, normal ROM, no rigidity - Respiratory Respiratory: bilateral: CTA - Cardiovascular Heart sounds: normal: S1, S2 - Gastrointestinal General gastrointestinal: soft, no tenderness - Integumentary Integumentary: normal, normal turgor - Psychiatric Psychiatric: A&O x's 3 Results CBC & Chem 7: 11/12/24 04:57 11/12/24 04:57 Labs: Abnormal Lab Results - Last 24 Hours (Table) 11/11/24 11/11/24 11/11/24 Range/Units 20:50 21:35 21:35 WBC 10.56 H (4.50-10.00) 10*3/uL RBC (4.10-5.20) 10*6/uL Hgb (12.0-15.0) g/dL Hct (37.2-46.3) % Immature Gran # 0.05 H (0.00-0.04) 10*3/uL Monocytes # 1.11 H (0.20-1.00) 10*3/uL Potassium (3.5-5.1) mmol/L Chloride (98-107) mmol/L Carbon Dioxide (22-30) mmol/L Creatinine (0.52-1.04) mg/dL Glucose (74-99) mg/dL Calcium (8.4-10.2) mg/dL Phosphorus (2.5-4.5) mg/dL Magnesium (1.6-2.3) mg/dL Total Protein (6.3-8.2) g/dL Albumin (3.5-5.0) g/dL Urine Blood Small H (Negative) Ur Leukocyte Esterase Trace H (Negative) Urine RBC 6 H (0-5) /hpf Calcium Oxalate Crystal Rare H (None) /hpf Urine Bacteria Rare H (None) /hpf Urine Mucus Rare H (None) /hpf Urine Yeast (Budding) Rare H (None) /hpf U Benzodiazepines Scrn Detected H (NotDetected) 11/11/24 11/12/24 11/12/24 Range/Units 23:00 04:57 04:57 WBC (4.50-10.00) 10*3/uL RBC 3.56 L (4.10-5.20) 10*6/uL Hgb 10.9 L D (12.0-15.0) g/dL Hct 32.8 L (37.2-46.3) % Immature Gran # 0.05 H (0.00-0.04) 10*3/uL Monocytes # (0.20-1.00) 10*3/uL Potassium 3.1 L (3.5-5.1) mmol/L Chloride 114 H (98-107) mmol/L Carbon Dioxide 17 L (22-30) mmol/L Creatinine 0.46 L (0.52-1.04) mg/dL Glucose 112 H (74-99) mg/dL Calcium 7.0 L (8.4-10.2) mg/dL Phosphorus 2.3 L (2.5-4.5) mg/dL Magnesium 1.4 L (1.6-2.3) mg/dL Total Protein 5.3 L (6.3-8.2) g/dL Albumin 2.9 L (3.5-5.0) g/dL Urine Blood (Negative) Ur Leukocyte Esterase (Negative) Urine RBC (0-5) /hpf Calcium Oxalate Crystal (None) /hpf Urine Bacteria (None) /hpf Urine Mucus (None) /hpf Urine Yeast (Budding) (None) /hpf U Benzodiazepines Scrn (NotDetected) Thrombosis Risk Factor Assmnt - Choose All That Apply Any of the Below Risk Factors Present?: No Each Risk Factor Represents 3 Points: Age 75 years or older Other congenital or acquired thrombophilia - If yes, enter type in comment: No Thrombosis Risk Factor Assessment Total Risk Factor Score: 3 Thrombosis Risk Factor Assessment Level: Moderate Risk Assessment and Plan (1) Altered mental status Current Visit: Yes Status: Acute Code(s): R41.82 - ALTERED MENTAL STATUS, UNSPECIFIED SNOMED Code(s): 153037537 (2) Hypertension Current Visit: No Status: Acute Code(s): I10 - ESSENTIAL (PRIMARY) HYPERTENSION SNOMED Code(s): 60127012 (3) Hypothyroid Current Visit: No Status: Acute Code(s): E03.9 - HYPOTHYROIDISM, UNSPECIFIED SNOMED Code(s): 60014030 Plan: Home medications reconciled. Check CBC and CMP in the morning. Potassium and magnesium are being replaced today. Appreciate neurology input. Patient seen and evaluated by nurse practitioner, physician in agreement with plan.
[2024-11-12] MEDS: POTASSIUM CHLORIDE ER 20 MEQ TAB.ER PO SCH (08:50)
[2024-11-12] MEDS: MAGNESIUM SULFATE-D5W PMX 1 GM in DEXTROSE/WATER 1 100ML.BAG IVPB SCH (08:51)
[2024-11-12 19:38] LABS: Basophils # (A) 0.08 10*3/uL (0.00-0.10); Basophils % (A) 0.8 %; Eosinophils # (A) 0.18 10*3/uL (0.04-0.35); Eosinophils % (A) 1.8 %; HCT 41.2 % (37.2-46.3); HGB 13.3 g/dL (12.0-15.0); Lymphocytes # (A) 3.04 10*3/uL (0.90-5.00); Lymphocytes % (A) 31.0 %; MCH 30.4 pg (27.0-32.0); MCHC 32.3 g/dL (32.0-37.0); MCV 94.1 fL (80.0-97.0); Monocytes # (A) 0.93 10*3/uL (0.20-1.00); Monocytes % (A) 9.5 %; Neutrophils # (A) 5.55 10*3/uL (1.80-7.70); Neutrophils % (A) 56.5 %; Platelet Count 283 10*3/uL (140-440); RBC 4.38 10*6/uL (4.10-5.20); RDW 14.6 % (11.5-14.5); WBC 9.82 10*3/uL (4.50-10.00)
[2024-11-12] MEDS: LEVOTHYROXINE 125 MCG TAB PO SCH (20:24)
[2024-11-12] MEDS: ATORVASTATIN 20 MG TAB PO SCH (20:24)
[2024-11-12] MEDS: PANTOPRAZOLE 40 MG TABLET PO SCH (20:24)
[2024-11-12] MEDS: PROPRANOLOL LA 60 MG CAP.SA.24H PO SCH (20:24)
[2024-11-12] MEDS: ALPRAZolam 0.25 MG TAB PO STA (20:53)
[2024-11-12] MEDS: SODIUM CHLORIDE 0.9% 1,000 ML IV SCH (21:01)
[2024-11-12 21:11] LABS: Vitamin B12 183.0 pg/mL (200.0-944.0)
--- NOTE | 2024-11-12 21:53 | US ---
EXAMINATION TYPE: US carotid duplex BILAT DATE OF EXAM: 11/12/2024 COMPARISON: NONE CLINICAL INDICATION: Female, 78 years old with history of slurred speech; slurred speech Additional History: .... TECHNIQUE: Grayscale, color Doppler and spectral Doppler evaluation of the bilateral carotid systems and vertebral arteries. Indirect Doppler criteria was utilized. FINDINGS: EXAM MEASUREMENTS: RIGHT: Peak Systolic Velocity (PSV) cm/sec ----- Right CCA: 50.2 ----- Right ICA: 68.0 ----- Right ECA: 133.0 ICA/CCA ratio: 1.3 RIGHT: End Diastole cm/sec ----- Right CCA: 8.8 ----- Right ICA: 12.3 ----- Right ECA: 9.0 LEFT: Peak Systolic Velocity (PSV) cm/sec ----- Left CCA: 50.0 ----- Left ICA: 70.2 ----- Left ECA: 150.0 ICA/CCA ratio: 1.4 LEFT: End Diastole cm/sec ----- Left CCA: 7.4 ----- Left ICA: 12.4 ----- Left ECA: 10.7 VERTEBRALS (direction of flow): Right Vertebral: Antegrade Left Vertebral: Antegrade Rhythm: Normal MANAGER CUSTOM NOTES: Difficult study, pulsatile, elderly lady with thick neck, mild homogeneous plaque with no stenosis seen Color Doppler imaging shows patency with blood flow throughout the carotid artery. Spectral waveforms are within normal limits. IMPRESSION: 1. Mild atheromatous plaquing without significant flow-limiting stenosis Criteria for Assigning % of Stenosis / Diameter reduction (Estimation based on the indirect measurements of the internal carotid artery velocities (ICA PSV). 1. Normal (no stenosis)=ICA PSV < 180 cm/s: ratio < 2.0: ICA EDV<40 cm/s. 2. Less than 50% stenosis=ICA PSV < 180 cm/s: ratio < 2.0: ICA EDV<40 cm/s. 3. 50 to 69% stenosis=ICA PSV of 180 to 230 cm/s: ration 2.0 ? 4.0: ICA EDV 40-100 cm/s. PSV 125-180 cm/sec and ICA/CCA PSV Ratio ? 2.0 is also consistent with 50-69% stenosis 4. Greater than 70% stenosis to near occlusion= ICA PSV > 230 cm/s: ratio > 4.0: ICA EDV > 100 cm/s. 5. Near occlusion= ICA PSV velocities may be low or undetectable: variable ratio and ICA EDV. 6. Total occlusion=unable to detect flow. [facility], , 11/12/2024 9:50 PM
[2024-11-13] MEDS: LIDOCAINE-PRILOCAINE 2.5-2.5% CREAM 5 GM TUBE TOPICAL STA (06:17)
[2024-11-13 07:31] VITALS: BP 133/76; PULSE 64; RESP 15; TEMP 98.1
[2024-11-13 08:11] LABS: HCT 41.1 % (37.2-46.3); HGB 12.9 g/dL (12.0-15.0); MCH 29.4 pg (27.0-32.0); MCHC 31.4 g/dL (32.0-37.0); MCV 93.6 FL (80.0-97.0); NRBC Per 100 WBC 0 X 10*3/uL (0.00-0.01); Platelet Count 295 X 10*3/uL (140-440); RBC 4.39 X 10*6/uL (4.10-5.20); RDW 14.9 % (11.5-14.5); WBC 9.90 X 10*3/uL (4.50-10.00)
[2024-11-13 08:16] LABS: ALT 24 U/L (8-44); AST 29 U/L (13-35); Albumin 4.2 g/dL (3.8-4.9); Albumin/Globulin Ratio 1.68 Ratio (1.60-3.17); Alkaline Phosphatase 88 U/L (41-126); Anion Gap 8.90 mmol/L (4.00-12.00); BUN/Creat Ratio 13.38 Ratio (12.00-20.00); Blood Urea Nitrogen 10.7 mg/dL (9.0-27.0); Calcium 8.7 mg/dL (8.7-10.3); Carbon Dioxide 22.1 mmol/L (21.6-31.8); Chloride 107 mmol/L (96-109); Globulin 2.5 g/dL (1.6-3.3); Glucose 113 mg/dL (70-110); Magnesium 2.4 mg/dL (1.5-2.4); Potassium 4.5 mmol/L (3.5-5.5); Sodium 138 mmol/L (135-145); Total Protein 6.7 g/dL (6.2-8.2)
--- NOTE | 2024-11-13 08:49 | P.PN ---
Subjective Progress Note Date: 11/13/24 Principal diagnosis: Hydrocephalus with altered mental status. Patient is a 78-year-old white female who essentially came in with altered mental status and slurred speech. She seems to be back to her baseline. She had an element of acute anemia but now this is resolved. Question lab error versus hydration status. Appreciate senior market intelligence consultant input. Appreciate neurology input. No voiding difficulties Objective - Vital Signs Vital signs: Vital Signs Temp 98.1 F 11/13/24 07:00 Pulse 64 11/13/24 07:00 Resp 15 11/13/24 07:00 BP 133/76 11/13/24 07:00 Pulse Ox 98 11/13/24 07:00 FiO2 Intake & Output 11/12/24 11/13/24 11/13/24 18:59 06:59 18:59 Other: Voiding Method Toilet # Voids 2 1 - Constitutional General appearance: Present: average body habitus, cooperative, no acute distress - EENT Eyes: Absent: abnormal pupil - Neck Neck: Absent: lymphadenopathy - Cardiovascular Rhythm: regular Heart sounds: normal: S1, S2 - Gastrointestinal General gastrointestinal: Present: soft. Absent: tenderness - Labs CBC & Chem 7: 11/13/24 02:28 11/13/24 02:28 Labs: Abnormal Lab Results - Last 24 Hours (Table) 11/12/24 11/12/24 11/13/24 Range/Units 04:57 19:29 02:28 MCHC (32.0-37.0) g/dL RDW 14.6 H (11.5-14.5) % Glucose 113 H (70-110) mg/dL Vitamin B12 183.0 L (200.0-944.0) pg/mL TSH 34.800 H (0.350-5.500) UIU/ML Free (T4) Reflex I 0.27 L (0.80-1.80) ng/dL 11/13/24 Range/Units 02:28 MCHC 31.4 L (32.0-37.0) g/dL RDW 14.9 H (11.5-14.5) % Glucose (70-110) mg/dL Vitamin B12 (200.0-944.0) pg/mL TSH (0.350-5.500) UIU/ML Free (T4) Reflex I (0.80-1.80) ng/dL Assessment and Plan Plan: Continue to follow. Appreciate neurologic evaluation. Question spurious hemoglobin now that her "anemia" has resolved. Surgical consult ordered. I suspect observation for the anemia at this time. Anticipate discharge once cleared by neurology.
--- NOTE | 2024-11-13 08:49 | P.CNNES ---
History of Present Illness Consult date: 11/12/24 Requesting physician: Ruben Carlin Reason for Consult: hydrocephalus,cva,ams History of Present Illness: Patient is a 78-year-old female came to the hospital yesterday at 8:29 PM for a altered mental status. Patient's granddaughter was present, who provided with a history. She mentions that yesterday at 3:30 PM patient's other granddaughter called her and she was slurring her words slightly, acting mean, which is not her norm. This granddaughter, who is present by the bedside later went to see her at 7:30 PM last night and she was again acting mean, asking her "get out of her home, not bother her", which is very unusual for her. Her speech was slightly slow. Due to her behavior, they wanted patient to come to the ER and she agreed. Patient lives by herself. Patient's granddaughter states that she patient had previous couple falls. Neurology was consulted for possible hydrocephalus noted on the CT head. Patient states in August 2024 patient suffered from a fall, hit her head but was not taken to the hospital. She had another fall prior in June 2024, when she claims that she was putting socks on, lost balance and fell and suffered from pelvic fracture. She stayed on the ground for a while. She did not require any surgery. Patient walks at home without any assistive device. Patient's granddaughter states that she is slightly slowed down, mumbles at times there is no facial droop or focal weakness. Patient denies any problems with bowel or bladder control. No urgency or incontinence. Patient's granddaughter states that she has noticed that patient has occasional bladder accident but patient denies. Patient walks fine, slightly slow. Patient's granddaughter feels that her memory is slightly forgetful since her fall in June 2024, but patient completely denies any memory issues. Vital signs on arrival blood pressure 173/84, pulse rate 71 temperature 97.9. Blood test showed WBC 10.56, which has come down to 9.05. Hemoglobin and platelets are normal. PT PTT normal. CMP normal. Ammonia 26, troponin negative. UA negative. Urine drug screen positive for benzodiazepine. EKG showed sinus rhythm CT head revealed moderate to severe hydrocephalus. No sig nificant dilation of the cerebral aqueduct which could indicate stenosis. Further workup is recommended. No acute intracranial hemorrhage. I personally reviewed CT head and agree with the findings. No previous CT scans available for comparison. Patient has history of hypertension for which she takes Inderal. Denies diabetes. Patient is a non-smoker. Denies alcohol use. Home medications in clude propranolol 60 mg at bedtime, Arimidex, simvastatin 20 mg, omeprazole, levothyroxine, [place] and lorazepam 1 mg 3 times daily as needed. Review of Systems Constitutional: Denies chills, denies fever Eyes: denies blurred vision, denies pain Ears, nose, mouth and throat: Denies headache, denies sore throat Cardiovascular: Denies chest pain, denies shortness of breath Respiratory: Denies cough Gastrointestinal: Denies abdominal pain, denies diarrhea, denies nausea, denies vomiting Genitourinary: Denies dysuria, denies hematuria Musculoskeletal: Denies myalgias Integumentary: Denies pruritis, denies rash Neurological: Denies numbness, denies weakness Psychiatric: Denies anxiety, denies depression Endocrine: Denies fatigue, denies weight change Past Medical History Past Medical History: Cancer, Hypertension Additional Past Medical History / Comment(s): Breast CA History of Any Multi-Drug Resistant Organisms: None Reported Past Surgical History: Hysterectomy Additional Past Surgical History / Comment(s): Left mastectomy with lymph node removal, Right total knee Past Psychological History: Anxiety Smoking Status: Never smoker Past Alcohol Use History: None Reported Past Drug Use History: None Reported - Past Family History Father Family Medical History: Diabetes Mellitus Mother Family Medical History: No Reported History Medications and Allergies Home Medications Medication Instructions Recorded Confirmed Type Anastrozole [Arimidex] 1 mg PO HS 07/15/24 11/12/24 History Levothyroxine Sodium [Synthroid] 125 mcg PO HS 07/15/24 11/12/24 History Omeprazole 20 mg PO HS 07/15/24 11/12/24 History Propranolol LA [Inderal LA] 60 mg PO HS 07/15/24 11/12/24 History Simvastatin [Zocor] 20 mg PO HS 07/15/24 11/12/24 History HYDROcodone/APAP 7.5-325MG [[place] 1 tab PO Q4H PRN 11/12/24 11/12/24 History 7.5-325] LORazepam [Ativan] 1 mg PO TID PRN 11/12/24 11/12/24 History Allergies Allergy/AdvReac Type Severity Reaction Status Date / Time morphine Allergy Unknown Verified 11/12/24 10:24 Penicillins Allergy Unknown Verified 11/12/24 10:24 Childhood sulfamethoxazole Allergy Unknown Verified 11/12/24 10:24 [From Bactrim] trimethoprim [From Bactrim] Allergy Unknown Verified 11/12/24 10:24 Physical Examination - Vital Signs Vital Signs: Vital Signs Temp Pulse Pulse Resp BP BP Pulse Ox 11/12/24 07:00 98.6 F 67 15 155/85 98 11/12/24 00:58 97.7 F 69 17 177/75 97 11/12/24 00:01 98.6 F 65 17 148/76 99 11/11/24 21:11 68 18 141/86 99 11/11/24 20:31 97.9 F 71 18 173/84 100 Intake and Output 11/11/24 11/12/24 11/12/24 22:59 06:59 14:59 Other: # Voids 1 Weight 62.596 kg 62.596 kg Patient is an elderly female, very pleasant, in no acute distress. Patient is alert awake fairly well-oriented. Patient knows it is the month of October and the year is 2024 and that she is in [facility] in [place] in [facility]. Patient could not tell name of the current president and she believes the last president was Luis Alfredo. She has mild visual spatial apraxia. Negative palmomental reflex. Speech and language functions are normal. Patient can name and repeat very well. No aphasia or dysarthria. Attention, concentration and fund of knowledge is adequate. On cranial nerve examination, pupils are equal, round and reacting to light, visual toro are full on confrontation, with no neglect on double simultaneous stimulation. Extraocular muscles are intact with no nystagmus. Face is symme tric, tongue protrudes to the midline. Palatal elevation and sensation normal, hearing and shoulder shrug normal, facial sensation normal. On muscle strength testing, there is no pronator drift and the strength is normal in arms and legs distally and proximally. Deep tendon reflexes are symmetric hypoactive and plantars are flat. Sensory to touch is equal with no neglect on double simultaneous stimulation. Cerebellar function showed no ataxia for [id number] testing. No dysdiadochokinesia. No ataxia for [id number] testing on either side. Tone and bulk of muscles normal. Gait: Patient walks fairly steady, with fairly normal stride and base. She able to turn without much difficulty. No significant parkinsonian features. No tremors noted. On general examination, there is no carotid bruit or murmur, S1-S2 audible. Chest is clear on consultation. Abdomen is soft nontender. No organomegaly, bowel sounds present. Peripheral pulses are present. No peripheral edema. Results - Laboratory Findings CBC and BMP: 11/13/24 02:28 11/13/24 02:28 Abnormal Lab Findings: Abnormal Labs 11/11/24 11/11/24 11/11/24 20:50 21:35 21:35 WBC 10.56 H RBC Hgb Hct Immature Gran # 0.05 H Monocytes # 1.11 H Potassium Chloride Carbon Dioxide Creatinine Glucose Calcium Phosphorus Magnesium Total Protein Albumin Urine Blood Small H Ur Leukocyte Esterase Trace H Urine RBC 6 H Calcium Oxalate Crystal Rare H Urine Bacteria Rare H Urine Mucus Rare H Urine Yeast (Budding) Rare H U Benzodiazepines Scrn Detected H 11/11/24 11/12/24 11/12/24 23:00 04:57 04:57 WBC RBC 3.56 L Hgb 10.9 L D Hct 32.8 L Immature Gran # 0.05 H Monocytes # Potassium 3.1 L Chloride 114 H Carbon Dioxide 17 L Creatinine 0.46 L Glucose 112 H Calcium 7.0 L Phosphorus 2.3 L Magnesium 1.4 L Total Protein 5.3 L Albumin 2.9 L Urine Blood Ur Leukocyte Esterase Urine RBC Calcium Oxalate Crystal Urine Bacteria Urine Mucus Urine Yeast (Budding) U Benzodiazepines Scrn Assessment and Plan Assessment: * Hydrocephalus noted on CT head. Patient herself denies any problems with gait, memory disturbance or problems with bowel or bladder control. Although, patient's granddaughter was concerned about some forgetfulness. However no significant problems with gait noted. No parkinsonian features. Patient does have Parkinson's, but she is currently asymptomatic. * Falls x 2 in the last 4 months, unclear cause. Uncertain if related to above. * Hypertension * History of breast cancer, in remission Plan: * Patient has presented with some behavioral problems (acting mean per family) and some "slow speech". Doubt TIAs. * Will check carotid Doppler to rule out carotid stenosis. * Check B12, folate, TSH, A1c. Ammonia is normal 26. * Patient and her family were educated about the warning symptoms of normal pressure hydrocephalus. If she starts having any problems with abnormal gait, memory disturbance or problems controlling bladder, then they should follow-up with neurologist for possible treatment of NPH. * Neurologically, no other workup indicated. * Recommend follow-up with neurologist outpatient. * Thank you for the consult.
[2024-11-13] MEDS: FOLIC ACID 1 MG TAB PO SCH (09:16)
[2024-11-13] MEDS: CYANOCOBALAMIN 1,000 MCG/ML 1 ML VIAL IM SCH (09:22)
--- NOTE | 2024-11-13 12:43 | P.PN ---
Subjective Progress Note Date: 11/13/24 Patient was seen for follow-up. Patient is fully dressed, want to go home. Denies any complaints. Objective - Vital Signs Vital signs: Vital Signs Temp 98.1 F 11/13/24 07:00 Pulse 64 11/13/24 07:00 Resp 15 11/13/24 07:00 BP 133/76 11/13/24 07:00 Pulse Ox 98 11/13/24 07:00 FiO2 Intake & Output 11/12/24 11/13/24 11/13/24 18:59 06:59 18:59 Intake Total 240 Balance 240 Intake: Oral 240 Other: Voiding Method Toilet # Voids 2 1 2 - Exam Nonfocal, unchanged. - Labs CBC & Chem 7: 11/13/24 02:28 11/13/24 02:28 Labs: Abnormal Lab Results - Last 24 Hours (Table) 11/12/24 11/12/24 11/13/24 Range/Units 04:57 19:29 02:28 MCHC (32.0-37.0) g/dL RDW 14.6 H (11.5-14.5) % Glucose 113 H (70-110) mg/dL Vitamin B12 183.0 L (200.0-944.0) pg/mL TSH 34.800 H (0.350-5.500) UIU/ML Free (T4) Reflex I 0.27 L (0.80-1.80) ng/dL 11/13/24 Range/Units 02:28 MCHC 31.4 L (32.0-37.0) g/dL RDW 14.9 H (11.5-14.5) % Glucose (70-110) mg/dL Vitamin B12 (200.0-944.0) pg/mL TSH (0.350-5.500) UIU/ML Free (T4) Reflex I (0.80-1.80) ng/dL Assessment and Plan Assessment: * Hydrocephalus noted on CT head. Patient herself denies any problems with gait, memory disturbance or problems with bowel or bladder control. Although, patient's granddaughter was concerned about some forgetfulness. However no significant problems with gait noted. No parkinsonian features. Patient does have NPH noted on CT, but she is currently asymptomatic. * Falls x 2 in the last 4 months, unclear cause. Uncertain if related to above. * Hypertension * History of breast cancer, in remission * Vitamin B12 deficiency * Folate borderline level * Hypothyroidism Plan: * Patient has presented with some behavioral problems (acting mean per family) and some "slow speech". Doubt TIAs. * Carotid Doppler revealed mild atheromatous plaquing without significant flow- limiting stenosis. Antegrade flow in both vertebral arteries. * B12 very low 183, folate also borderline 8.5, TSH is elevated 34.80 and free T4 is low at 0.27. Patient has hypothyroidism as well. * We will start B12 injections. Patient will undergo weekly B12 injections for 4 weeks then once a month injection. Patient's granddaughter is a nurse practitioner, who can administer injections at home. * Folic acid 1 mg daily * Patient has hypothyroidism. Patient is on levothyroxine 125 mcg daily. Need to address and adjust the dose of levothyroxine. We will defer to IM. * Patient and her family were educated about the warning symptoms of normal pressure hydrocephalus. If she starts having any problems with abnormal gait, memory disturbance or problems controlling bladder, then they should follow-up with neurologist for possible treatment of NPH. * Recommend follow-up with neurologist outpatient and 1 to 2 weeks. * Neurologically clear for discharge with above recommendations.
--- NOTE | 2024-11-13 13:14 | P.GSCN ---
History of Present Illness Consult date: 11/13/24 Reason for Consult: Anemia History of present illness: This is a 78-year-old female who was admitted to the hospital. Patient noted to be anemic. Patient states that she has not seen any evidence of GI bleed. She denies any dark or tarry stools. Her last colonoscopy about 3 years ago. She says it was normal. Past Medical History Past Medical History: Cancer, Hypertension Additional Past Medical History / Comment(s): Breast CA History of Any Multi-Drug Resistant Organisms: None Reported Past Surgical History: Hysterectomy Additional Past Surgical History / Comment(s): Left mastectomy with lymph node removal, Right total knee Past Psychological History: Anxiety Smoking Status: Never smoker Past Alcohol Use History: None Reported Past Drug Use History: None Reported - Past Family History Father Family Medical History: Diabetes Mellitus Mother Family Medical History: No Reported History Medications and Allergies Home Medications Medication Instructions Recorded Confirmed Type Anastrozole [Arimidex] 1 mg PO HS 07/15/24 11/12/24 History Omeprazole 20 mg PO HS 07/15/24 11/12/24 History Propranolol LA [Inderal LA] 60 mg PO HS 07/15/24 11/12/24 History Simvastatin [Zocor] 20 mg PO HS 07/15/24 11/12/24 History HYDROcodone/APAP 7.5-325MG [[place] 1 tab PO Q4H PRN 11/12/24 11/12/24 History 7.5-325] LORazepam [Ativan] 1 mg PO TID PRN 11/12/24 11/12/24 History Folic Acid 1 mg PO DAILY #30 tab 11/13/24 Rx Levothyroxine Sodium [Synthroid] 150 mcg PO HS #30 tab 11/13/24 Rx Allergies Allergy/AdvReac Type Severity Reaction Status Date / Time morphine Allergy Unknown Verified 11/12/24 10:24 Penicillins Allergy Unknown Verified 11/12/24 10:24 Childhood sulfamethoxazole Allergy Unknown Verified 11/12/24 10:24 [From Bactrim] trimethoprim [From Bactrim] Allergy Unknown Verified 11/12/24 10:24 Surgical - Exam Vital Signs Temp Pulse Resp BP Pulse Ox 97.9 F 71 18 173/84 100 11/11/24 20:31 11/11/24 20:31 11/11/24 20:31 11/11/24 20:31 11/11/24 20:31 - General well developed, well nourished, no distress - Eyes PERRL - ENT normal pinna - Neck no masses - Respiratory normal expansion - Cardiovascular Rhythm: regular - Abdomen Abdomen: soft, non tender Results - Labs 11/13/24 02:28 11/13/24 02:28 Abnormal Lab Results - Last 24 Hours (Table) 11/12/24 11/12/24 11/13/24 Range/Units 04:57 19:29 02:28 MCHC (32.0-37.0) g/dL RDW 14.6 H (11.5-14.5) % Glucose 113 H (70-110) mg/dL Vitamin B12 183.0 L (200.0-944.0) pg/mL TSH 34.800 H (0.350-5.500) UIU/ML Free (T4) Reflex I 0.27 L (0.80-1.80) ng/dL 11/13/24 Range/Units 02:28 MCHC 31.4 L (32.0-37.0) g/dL RDW 14.9 H (11.5-14.5) % Glucose (70-110) mg/dL Vitamin B12 (200.0-944.0) pg/mL TSH (0.350-5.500) UIU/ML Free (T4) Reflex I (0.80-1.80) ng/dL Diabetes panel 11/12/24 11/13/24 Range/Units 04:57 02:28 Sodium 138 (135-145) mmol/L Potassium 4.5 (3.5-5.5) mmol/L Chloride 107 (96-109) mmol/L Carbon Dioxide 22.1 (21.6-31.8) mmol/L BUN 10.7 (9.0-27.0) mg/dL Creatinine 0.8 (0.6-1.5) mg/dL Glucose 113 H (70-110) mg/dL Hemoglobin A1c 5.8 (<=6.0) % Calcium 8.7 (8.7-10.3) mg/dL AST 29 (13-35) U/L ALT 24 (8-44) U/L Alkaline Phosphatase 88 (41-126) U/L Total Protein 6.7 (6.2-8.2) g/dL Albumin 4.2 (3.8-4.9) g/dL Thyroid panel 11/12/24 Range/Units 04:57 TSH 34.800 H (0.350-5.500) UIU/ML Calcium panel 11/13/24 Range/Units 02:28 Calcium 8.7 (8.7-10.3) mg/dL Albumin 4.2 (3.8-4.9) g/dL Pituitary panel 11/12/24 11/13/24 Range/Units 04:57 02:28 Sodium 138 (135-145) mmol/L Potassium 4.5 (3.5-5.5) mmol/L Chloride 107 (96-109) mmol/L Carbon Dioxide 22.1 (21.6-31.8) mmol/L BUN 10.7 (9.0-27.0) mg/dL Creatinine 0.8 (0.6-1.5) mg/dL Glucose 113 H (70-110) mg/dL Calcium 8.7 (8.7-10.3) mg/dL TSH 34.800 H (0.350-5.500) UIU/ML Adrenal panel 11/13/24 Range/Units 02:28 Sodium 138 (135-145) mmol/L Potassium 4.5 (3.5-5.5) mmol/L Chloride 107 (96-109) mmol/L Carbon Dioxide 22.1 (21.6-31.8) mmol/L BUN 10.7 (9.0-27.0) mg/dL Creatinine 0.8 (0.6-1.5) mg/dL Glucose 113 H (70-110) mg/dL Calcium 8.7 (8.7-10.3) mg/dL Total Bilirubin 0.4 (0.3-1.2) mg/dL AST 29 (13-35) U/L ALT 24 (8-44) U/L Alkaline Phosphatase 88 (41-126) U/L Total Protein 6.7 (6.2-8.2) g/dL Albumin 4.2 (3.8-4.9) g/dL Assessment and Plan Assessment: Acute anemia. Patient wishes to be discharged home. We can perform an outpatient upper and lower endoscopy.
== END 2024-11-13 13:38 | disposition home or self-care (01) ==
LOC: EC 20:29 → 6NMEDSUR 22:22
PROVIDERS: ADMIT Family Medicine; ATTEND Family Medicine
DX: G91.9 Hydrocephalus, unspecified (principal); D64.9 Anemia, unspecified; I10 Essential (primary) hypertension; G20.A1 Parkinson's disease without dyskinesia, without mention of fluctuations; E03.9 Hypothyroidism, unspecified; F41.9 Anxiety disorder, unspecified; E53.8 Deficiency of other specified B group vitamins; Z85.3 Personal history of malignant neoplasm of breast; Z79.899 Other long term (current) drug therapy; Z79.890 Hormone replacement therapy; Z88.5 Allergy status to narcotic agent; Z88.0 Allergy status to penicillin; Z88.2 Allergy status to sulfonamides
CPT/HCPCS: 96365; 96366; 96372; 96361; 99285; 36415; 93005; 84439; 80053 ×3; 84443; 82607; 82140; 82746; 83735 ×2; 84100; 84484; 85025 ×2; 85027; 85610; 85730; 81001; 80306; 83036; 93880; 70450; G0378 ×3; G0480; J3420; J3475; 80320